=== PATIENT | male | born 1950 | race Caucasian/White ===

== ENCOUNTER → 2017-10-30 | Outpatient (CLI) | payer MEDICARE ==
--- NOTE | 2017-10-30 11:12 | XR ---
EXAMINATION TYPE: XR knee complete LT DATE OF EXAM: 10/30/2017 CLINICAL HISTORY: Left knee pain TECHNIQUE: Three views of the left knee are obtained. COMPARISON: None. FINDINGS: There is no acute fracture/dislocation evident in left knee. There is mild to moderate tri compartment joint space loss and spurring most prominent lateral tibiofemoral and patellofemoral comp artments. The overlying soft tissue appears unremarkable. IMPRESSION: There are moderate tricompartment degenerative changes in the left knee.
== END | disposition home or self-care (01) ==
LOC: RADXRMAIN 10:26
PROVIDERS: ATTEND Family Medicine
DX: M23.92 Unspecified internal derangement of left knee (principal)

== ENCOUNTER → 2017-11-06 | Outpatient (CLI) | payer MEDICARE ==
--- NOTE | 2017-11-06 15:07 | MR ---
EXAMINATION TYPE: MR knee LT wo con DATE OF EXAM: 11/06/2017 COMPARISON: NONE HISTORY: lt knee pain TECHNIQUE: Multiplanar, multisequence imaging of the left knee is performed without IV contrast. FINDINGS: MEDIAL MENISCUS: Subtle blunting of the posterior free edge of the medial meniscus compatible with a very small radial tear. LATERAL MENISCUS: There is a complex tear of the posterior horn of the lateral meniscus with radial t ear of the free edge of the posterior horn, oblique tear of the posterior horn, and extension into th e meniscal body. There is abnormal intrameniscal signal with fraying of the root fibers posteriorly. No definitive discontinuity. CRUCIATE LIGAMENTS: The anterior and posterior cruciate ligaments are intact. However there is abnorm al signal throughout the thickened anterior cruciate ligament compatible with mucoid degeneration. COLLATERAL LIGAMENTS: The medial collateral ligament and lateral collateral ligament complex are inta ct. There is thickening of the lateral meniscal femoral ligament and lateral collateral ligament with surrounding high signal on PD weighted images both superficial and deep to the lateral collateral li gament. No discontinuity. EXTENSOR MECHANISM: Visualized quadriceps and patellar tendons are intact. EFFUSION: There is a small suprapatellar joint effusion with internal complexity indicative of synov itis. POPLITEAL CYST: There is a small multiloculated popliteal cyst. TRICOMPARTMENT SPACES: Bone marrow edema is seen of the weightbearing surface of the lateral femoral condyle and tibial plateau with subchondral cyst formation of the tibial plateau. Bone marrow edema m ay be related to meniscal injury and cartilaginous defects and on a degenerative basis. Small margina l tricompartmental osteophytes are seen. CARTILAGE: There is full-thickness cartilaginous loss of the posterior weightbearing surface of the l ateral femoral condyle measuring 1.8 x 0.7 cm. There is signal heterogeneity of the remainder of the medial femoral condylar cartilage. There is full-thickness cartilaginous defect of the tibia measurin g 1.8 cm. Trochlear cartilage demonstrates mild signal heterogeneity without focal defect. Patellar c artilage is intact. There is signal heterogeneity throughout the medial compartment cartilage without focal partial or fu ll-thickness cartilaginous loss. IMPRESSION: 1. Complex tear of the posterior horn of lateral meniscus with oblique component and radial component . There is extension into the meniscal body and fraying of the posterior root without discrete tear. 2. Very small subtle free edge radial tear of the posterior horn of the medial meniscus. 3. Bone marrow edema and subchondral cystic change of the lateral femoral condyle and tibial plateau deep to full-thickness chondral defects of the weightbearing surface of the lateral femoral condyle a nd lateral tibial plateau with subsequent tibial plateau subchondral cysts. 4. Moderate tricompartmental arthrosis. 5. Small complex suprapatellar joint effusion indicative of synovitis. 6. Lateral collateral ligament sprain and abnormal thickness of the meniscal femoral ligament. 7. Mucoid degeneration of the anterior cruciate ligament.
== END | disposition home or self-care (01) ==
LOC: RADMRIMAIN 12:38
PROVIDERS: ATTEND Family Medicine
DX: S83.272A Complex tear of lateral meniscus, current injury, left knee, initial encounter (principal); S83.242A Other tear of medial meniscus, current injury, left knee, initial encounter; M17.12 Unilateral primary osteoarthritis, left knee; S83.422A Sprain of lateral collateral ligament of left knee, initial encounter; M25.862 Other specified joint disorders, left knee

== ENCOUNTER 2018-01-15 12:30 | Inpatient (IN) | payer MEDICARE ==
[2018-01-13 10:57] VITALS: BMI 22.4
[2018-01-22] MEDS ORDERED: ACETAMINOPHEN TAB 500 MG TAB PO ONE (05:00)
[2018-01-22] MEDS ORDERED: ceFAZolin IN SWFI 2 GM/20 ML SYRINGE IVP ONE (05:00)
[2018-01-22] MEDS ORDERED: ONDANSETRON 4 MG/2 ML VIAL IVP ONE ×2 (05:00→05:44)
[2018-01-22] MEDS ORDERED: MELOXICAM 7.5 MG TAB PO ONE (05:00)
[2018-01-22] MEDS ORDERED: TRANEXAMIC ACID 1,000 MG in SODIUM CHLORIDE 0.9% 50 ML IVPB ONE ×4 (05:00)
[2018-01-22] MEDS ORDERED: HYDROmorphone 0.5 MG/0.5 ML SYRINGE IVP PRN (05:44)
[2018-01-22] MEDS ORDERED: DEXAMETHASONE SOD PHOSPHATE 10 MG/ML 1 ML VIAL IV ONE (05:44)
[2018-01-22] MEDS ORDERED: ROPIVACAINE 246.25 MG, EPINEPHrine 0.5 MG, KETOROLAC 30 MG, cloNIDine HCL/PF 80 MCG, WA... MISCELLANE ONE ×5 (09:10)
[2018-01-22] MEDS: LACTATED RINGERS 1,000 ML IV SCH ×2 (11:39→15:35)
[2018-01-22] MEDS ORDERED: LIDOCAINE 1% 20 ML VIAL (10MG/ML) FOR IV START INTRADERMA ONE (11:40)
[2018-01-22] MEDS ORDERED: PROPOFOL 10 MG/ML 20 ML VIAL IV ONE (11:52)
[2018-01-22] MEDS ORDERED: MIDAZOLAM 2 MG/2 ML VIAL ONE (11:52)
[2018-01-22] MEDS ORDERED: fentaNYL (PF) 50 MCG/ML 2 ML AMP ONE (11:52)
[2018-01-22] MEDS ORDERED: TRANEXAMIC ACID 1,000 MG/10 ML VIAL ONE (11:52)
[2018-01-22] MEDS ORDERED: SODIUM CHLORIDE 0.9% 100 ML BAG ONE (11:52)
[2018-01-22] MEDS ORDERED: ceFAZolin 3,000 MG in SODIUM CHLORIDE 0.9% IRRIGATIO 3,000 ML IRRIGATION ONE (12:26)
[2018-01-22] MEDS ORDERED: TEMAZEPAM 15 MG CAP PO PRN (13:46)
[2018-01-22] MEDS ORDERED: HYDROcodone/APAP 5-325MG 1 EACH TAB PO PRN (13:46)
[2018-01-22] MEDS ORDERED: BISACODYL 10 MG SUPP RECTAL PRN (13:46)
[2018-01-22] MEDS ORDERED: DIAZEPAM 5 MG TAB PO PRN (13:46)
[2018-01-22] MEDS ORDERED: hydrOXYzine PAMOATE 25 MG CAP PO PRN (13:46)
[2018-01-22] MEDS ORDERED: NALOXONE 0.4 MG/ML 1 ML VIAL IV PRN (13:46)
[2018-01-22] MEDS ORDERED: HYDROmorphone 1 MG/ML 1 ML SYRINGE IVP PRN ×3 (13:46)
[2018-01-22] MEDS ORDERED: NA PHOS,M-B/NA PHOS,DI-BA 133 ML ENEMA RECTAL PRN (13:46)
[2018-01-22] MEDS ORDERED: ONDANSETRON 4 MG/2 ML VIAL IVP PRN (13:46)
[2018-01-22] MEDS ORDERED: MAGNESIUM HYDROXIDE 2,400 MG/10 ML CUP PO PRN (13:46)
--- NOTE | 2018-01-22 14:43 | OP ---
OPERATIVE REPORT DATE OF PROCEDURE: 01/22/2018 SURGEON: Twan Renae MD. TRAINING AND QUALITY MANAGER: LEIDY Greenberg. PREOPERATIVE DIAGNOSIS: Left knee osteoarthrosis. POSTOPERATIVE DIAGNOSIS: Left knee osteoarthritis. OPERATION: Left total knee arthroplasty. ANESTHESIA: Spinal with sedation. ESTIMATED BLOOD LOSS: 100 mL. TOURNIQUET TIME: 47 minutes at 250 mmHg. COMPLICATIONS: None apparent. DRAINS: None. DISPOSITION: Postanesthesia care unit preop. INDICATIONS: Jorden is a very pleasant 67-year-old male with longstanding history of left knee pain. History and physical examination are consist with advanced left knee osteoarthrosis. He has been through fairly significant course of nonoperative treatment up to this point. Further treatment options were discussed and he has decided to go for the left total knee arthroplasty. The risks of procedure were discussed with him in detail. These risks include, but are not limited to risk of infection, nerve damage, bleeding, pain and risk of deep vein thrombosis which could lead to fatal pulmonary embolism. There is also risk of loosening of the implant which could require revision operation. The patient understands these risks. All of his questions were answered to his satisfaction. Appropriate informed consent was obtained. DESCRIPTION OF THE PROCEDURE: Patient identified in preop holding area. Surgical site was marked by both the patient and myself. He was given 2 g of Ancef IV for prophylactic purposes. He was then transferred to the operative suite. He was placed supine on the operative table. Spinal anesthetic was then administered and dosed per the Anesthesia Department without apparent complication. Examination under anesthesia was then performed. The patient was just 2-3 degrees shy of full extension. He had 105 degrees of flexion in the medial collateral ligament. Lateral collateral ligament and posterior cruciate ligaments were stable. Tourniquet was then placed high on the left upper thigh well-padded in preparation for surgery. The patient's left lower extremity was then prepped and draped in usual sterile fashion. Standard surgical pause undertaken to ensure that appropriate preoperative antibiotics were given and that we were operating the on the correct site. All staff in the room were in agreement and we proceeded. The outlines of the patella were marked surgical pen. A planned 10-12 cm vertical incision centered over the patella was marked surgical pen. Leg was then exsanguinated with an Esmarch dressing. The knee was then flexed and the tourniquet was inflated to 250 mmHg. The total tourniquet time for the procedure was 47 minutes. The incision was then made with a 10 blade scalpel. Dissection carried down sharply overlying fascia. Great care was taken to minimize the skin flaps. The knee was then exposed using a standard medial parapatellar approach. A small cuff of quadriceps tendon was then left for suturing. He was in a bit of valgus preoperatively. A very minimal medial release was made. This was done just to allow for placement of the medial retractors to protect the medial collateral ligament. The medial meniscus was then excised as well. The lateral meniscus was also released anteriorly. The leg was then externally rotated. The patella was everted. The knee was flexed. The retractors then placed to protect the collateral ligaments. I then proceeded to remove the infrapatellar fat pad. This was excised sharply tangentially with with fibers of the patellar tendon. I then proceeded to remove peripheral osteophytes. This was done with a rongeur. I then proceeded with the distal femoral resection. He did have near full extension. A planned 9 mm resection was then done. The femoral canal was then entered in midline of the femur approximately 10 mm anterior to the origin of the posterior cruciate ligament. The chon was then advanced down the center of the femur and placed intramedullary. Based on preoperative radiographs, the angle between the anatomic and mechanical axis of the femur was approximately 4 to 5 degrees. The valgus angle of this femoral cutting guide was then set at 4 degrees for the right knee, for the distal femoral cutting guide was then advanced over the intramedullary chon. This was seated firmly against the femur. I then as mentioned planned to take 9 mm off the distal femur. The cutting block was then secured onto the femur with pins. The jig was then removed and then distal femoral cut was made through the slot of the block. The pins were then removed. The distal femoral cutting block was removed. The accuracy of the distal femoral cuts was checked with 2 flat bars. I then proceeded with femoral sizing. Posterior referencing sizing guide was held firmly against the resected distal surface of the femur. Posterior condyles were resting on the posterior plane of the guide. The sizing stylus was then placed onto the anterior femur. The size was measured as a size 9. I then assessed for femoral rotation. Plan was for 3 degrees of external rotation. Three degrees of external rotation was placed onto the jig. These holes were then marked. I then confirmed the rotation by 3 separate methods. This was done using epicondylar axis as well as Whitesides line and posterior referencing. It was deemed that the external rotation was proper. I then went forward with placing the femoral cutting block. This placed over the previously placed pin holes. The Sai wing was then placed onto the anterior slots to ensure that we would not notch the anterior femur with the anterior femoral cut. I then proceed with the anterior femoral cut. This was flush with the anterior cortex of the femur. The posterior cuts were then made followed by the anterior chamfer cut, then the posterior chamfer cut. The cutting block was then removed. Throughout the resection, the collateral ligaments were protected with retractors. I then placed a trial size 9 femur. It fit very nice medial-lateral and fit flush with the distal end of the femur. The drill holes were then made. I then proceed with tibial cut. I planned for cruciate retaining knee. The guide was placed and set for varus valgus and for slope. The height set for approximate 2 mm resection from the lateral tibial plateau which was the lower side appears happy with the alignment and amount of resection. The cutting block was then pinned to the proximal tibia. The alignment chon was removed and the proximal tibia was resected with a reciprocating saw. Again this was done with retractors protecting the collateral ligaments as well as the posterior cruciate ligament. I then proceeded to evaluate the flexion and extension gaps. A 10 mm block was then placed. The flexion-extension gaps were equal. I then proceeded with the resection of the posterior osteophytes. Very minimal posterior osteophytes. This is done using a curved osteotome. This resected the posterior osteophytes and posterior capsule stripping was done off the posterior aspect of the femur at this time. The osteophytes were then removed. I then proceed to resection of the patella. The thickness of patella was measured using the caliper. The thickness was approximately 26 mm. The thickness of the anticipated patellar dome was then taken into account. Resection was then performed and confirmed to be equal in 4 quadrants using a caliper. Approximately 14 mm of bone remained after resection. A 32 x 8.5 standard patellar trial was then placed. The holes were drilled. The trial was then placed. I then proceed to sign the tibial plate. A size G tibial plate fit very nicely. I then placed the trial femur the tibial tray and patellar button. A 10 mm trial tibial insert was also placed. The components fit very nicely. He had full extension and flexion. The extension flexion gaps were equal and stable to both varus and valgus stress. The patella tracked appropriately. The tibial tray rotation was marked with a Bovie. This was externally rotated properly. I then proceed to tibial preparation. I first drilled the femoral holes removed femoral component. The tibial tray was then set for proper external rotation as well as mediolateral placement onto the tibia. It was then pinned into place. I then proceeded with punching the keel. I then decided to proceed with cementing of all of our components. The knee was thoroughly irrigated with sterile saline solution via pulse lavage. The lateral geniculate artery was identified and cauterized. All blood was removed from the bone of the tibia femur and patella via pulse lavage. I then proceed with cementing. Two packs of antibiotic bone cement were prepared on the back table by the surgical dressing maker. I then proceeded with cementing the tibia first. The cement was impacted into the keel as well as deeply seated into the bone. A second coat of cement was then placed. The tibia was then impacted into place. Excess cement was removed with Marky's and Joker's. I then proceed with cementing the femoral component. The femoral component was also cemented using standard technique. Excess cement was removed. A 10 mm trial insert was then placed into the knee. It was brought into full extension with a constant axial load placed until the cement had hardened. The patellar component was then cemented. This held firmly with a compressive device until the cement had dried. When the cement had dried, the knee was taken out of extension. All of all excess cement was removed from around the prosthesis. I then trialed the knee with a 10 mm insert. Flexion extension gaps were appropriate. The knee was stable. It came into full extension. I decided to go for the 10 mm cross-linked cruciate-retaining tibial insert. Polyethylene was then placed onto the tibial tray and locked into place. The knee was then reduced. The knee was again thoroughly irrigated with sterile saline solution with antibiotic added. The tourniquet was then deflated. Total tourniquet time for the procedure was 47 minutes at 250 mmHg. Final components were Phyllis Persona size 9 cruciate-retaining femoral component, a size G tibial tray, a 10 mm medial congruent cruciate-retaining polyethylene insert and a 32 x 8.5 mm patella. I then proceeded with closure. Again, the knee was thoroughly irrigated. The quadriceps tendon and medial retinaculum were reapproximated with #2 Ethibond suture. The extensor mechanism was then closed with a running #2 Quill suture. Subcutaneous tissues were then closed with 2-0 Vicryl interrupted suture. The skin was closed with a running 3-0 Quill suture. Dermabond was applied to the incision. Sterile compressive dressing was then applied. All sponge and needle counts were deemed correct prior to closure. The patient tolerated the procedure without apparent complication. He was transferred recovery room in stable condition. MMODL / IJN: [id number] /
--- NOTE | 2018-01-22 15:20 | XR ---
EXAMINATION TYPE: XR knee limited LT DATE OF EXAM: 01/22/2018 COMPARISON: 10/30/2017 HISTORY: Knee replacement TECHNIQUE: 2 view left knee FINDINGS: Tibial and femoral components of in place. Postsurgical changes are present. No acute fract ures are evident. IMPRESSION: 1. No acute fractures post knee replacement
--- NOTE | 2018-01-22 17:50 | P.CONS ---
History of Present Illness - Reason for Consult Recommendations regarding antihypertensive medications - History of Present Illness Patient had elective left knee arthroplasty 6 insulin surgery, did pass gas didn 't move his bowel get denied any fever chills nausea vomiting dysuria. Review of Systems REVIEW OF SYSTEMS: CONSTITUTIONAL: No fever, no malaise, no fatigue. HEENT: No recent visual problems or hearing problems. Denied any sore throat. CARDIOVASCULAR: No chest pain, orthopnea, PND, no palpitations, no syncope. PULMONARY: No shortness of breath, no cough, no hemoptysis. GASTROINTESTINAL: No diarrhea, no nausea, no vomiting, no abdominal pain. Normoactive bowel sounds. NEUROLOGICAL: No headaches, no weakness, no numbness. HEMATOLOGICAL: Denies any bleeding or petechiae. GENITOURINARY: Denies any burning micturition, frequency, or urgency. MUSCULOSKELETAL/RHEUMATOLOGICAL: Denies any joint pain, swelling, or any muscle pain. ENDOCRINE: Denies any polyuria or polydipsia. The rest of the 14-point review of systems is negative. Past Medical History Past Medical History: Hyperlipidemia, Hypertension, Osteoarthritis (OA) History of Any Multi-Drug Resistant Organisms: None Reported Past Surgical History: No Surgical Hx Reported Additional Past Surgical History / Comment(s): COLONOSCOPY Past Anesthesia/Blood Transfusion Reactions: No Reported Reaction Past Psychological History: No Psychological Hx Reported Smoking Status: Never smoker Past Alcohol Use History: None Reported Past Drug Use History: None Reported - Past Family History Mother Family Medical History: Myocardial Infarction ([place]) Additional Family Medical History / Comment(s): emphysema Sister(s) Family Medical History: Hypertension Medications and Allergies Home Medications Medication Instructions Recorded Confirmed Type Aspirin 81 mg PO DAILY 05/27/14 01/22/18 History Multivitamin [Men's Multi-Vitamin] 1 tab PO DAILY 05/27/14 01/22/18 History Simvastatin [Zocor] 40 mg PO HS 05/27/14 01/22/18 History amLODIPine BESYLATE/BENAZEPRIL 1 tab PO HS 05/27/14 01/22/18 History [Amlodipine-Benazepril 5-10 mg] Cetirizine HCl [Zyrtec] 10 mg PO DAILY 01/13/18 01/22/18 History Aspirin 325 mg PO BID #60 tab 01/22/18 Rx Docusate [Colace] 100 mg PO BID #60 capsule 01/22/18 Rx HYDROcodone/APAP 7.5-325MG [[place] 1 - 2 each PO Q6HR PRN #56 tab 01/22/18 Rx 7.5-325] Allergies Allergy/AdvReac Type Severity Reaction Status Date / Time No Known Allergies Allergy Verified 01/22/18 14:52 Physical Exam Vitals: Vital Signs Temp Pulse Pulse Resp BP Pulse Ox 01/22/18 16:15 54 L 16 136/72 98 01/22/18 16:00 52 L 16 139/89 100 01/22/18 15:45 51 L 16 139/75 99 01/22/18 15:30 59 L 16 123/78 96 01/22/18 15:15 56 L 16 129/72 99 01/22/18 15:00 50 L 16 124/71 98 01/22/18 14:45 50 L 16 128/74 100 01/22/18 14:30 98.2 F 48 L 16 129/83 99 01/22/18 14:15 49 L 16 116/58 98 01/22/18 14:00 50 L 16 107/55 98 01/22/18 13:49 97.4 F L 55 L 16 107/58 97 01/22/18 11:27 98.0 F 53 L 18 174/83 98 Intake and Output 01/22/18 01/22/18 01/22/18 06:59 14:59 22:59 Intake Total 701 Output Total 100 Balance 601 Intake: IV 701 Output: Estimated Blood Loss 100 Other: Voiding Method Urinal Weight 77.111 kg PHYSICAL EXAMINATION: GENERAL: The patient is alert and oriented x3, not in any acute distress. Well developed, well nourished. HEENT: Pupils are round and equally reacting to light. EOMI. No scleral icterus. No conjunctival pallor. Normocephalic, atraumatic. No pharyngeal erythema. No thyromegaly. CARDIOVASCULAR: S1 and S2 present. No murmurs, rubs, or gallops. PULMONARY: Chest is clear to auscultation, no wheezing or crackles. ABDOMEN: Soft, nontender, nondistended, normoactive bowel sounds. No palpable organomegaly. MUSCULOSKELETAL: Deferred to orthopedic surgery EXTREMITIES: No cyanosis, clubbing, or pedal edema. NEUROLOGICAL: Gross neurological examination did not reveal any focal deficits. SKIN: No rashes. Assessment and Plan Plan: -Hypertension: To prevent perioperative hypotension I'll hold off antidepressive medications. -Hyperlipidemia simvastatin will be continued -Left knee arthroplasty: Pain management due to prophylaxis per primary service hold off 81 mg of aspirin as patient was started on 325 mg of aspirin.
[2018-01-22] MEDS: ASPIRIN 325 MG TAB PO SCH (20:34)
[2018-01-22] MEDS: ceFAZolin IN SWFI 2 GM/20 ML SYRINGE IVP SCH (20:34)
[2018-01-22] MEDS ORDERED: SENNOSIDES-DOCUSATE SODIUM 1 EACH TAB PO SCH (21:00)
[2018-01-22] MEDS ORDERED: ATORVASTATIN 20 MG TAB PO SCH (21:00)
[2018-01-22] MEDS: HYDROcodone/APAP 7.5-325MG 1 EACH TAB PO PRN (21:41)
[2018-01-23] MEDS: ceFAZolin IN SWFI 2 GM/20 ML SYRINGE IVP SCH (03:31)
[2018-01-23] MEDS: HYDROcodone/APAP 7.5-325MG 1 EACH TAB PO PRN ×2 (03:31→10:17)
[2018-01-23] MEDS: LACTATED RINGERS 1,000 ML IV SCH ×2 (03:39→07:38)
[2018-01-23 07:06] LABS: Basophils % (A) 0 %; Eosinophils % (A) 0 %; HCT 41.5 % (39.0-53.0); HGB 13.2 gm/dL (13.0-17.5); Lymphocytes # (A) 1.3 k/uL (1.0-4.8); Lymphocytes % (A) 9 %; MCHC 31.8 g/dL (31.0-37.0); MCV 91.3 fL (80.0-100.0); Mean Platelet Volume 7.4; Monocytes # (A) 0.9 k/uL (0-1.0); Monocytes % (A) 6 %; Neutrophils # (A) 12.1 k/uL (1.3-7.7); Neutrophils % (A) 84 %; Platelet Count 235 k/uL (150-450); RBC 4.55 m/uL (4.30-5.90); RDW 12.1 % (11.5-15.5); WBC 14.4 k/uL (3.8-10.6)
[2018-01-23 07:38] VITALS: BP 138/76; PULSE 60; RESP 14; TEMP 98.5
[2018-01-23] MEDS: ASPIRIN 325 MG TAB PO SCH (08:27)
--- NOTE | 2018-01-23 08:41 | P.DS ---
Providers Date of admission: 01/22/18 10:46 Expected date of discharge: 01/23/18 Attending physician: Twan Renae Consults: 01/22/18 13:46 Consult Physician Routine Consulting Provider: Anthony Funez Consult Reason/Comments: post op medical management Do you want consulting provider notified?: Yes Primary care physician: Anthony Funez - Discharge Diagnosis(es) (1) Primary osteoarthritis of left knee Current Visit: Yes Status: Acute (2) S/P total knee arthroplasty Current Visit: Yes Status: Acute Hospital Course: This is a 67-year-old male with known history of degenerative arthritis of the left knee. The patient presents for evaluation. After discussion and consideration patient elects to proceed with total knee arthroplasty. The patient is seen preoperatively by Dr. Renae and medically cleared for surgery by their primary care physician. Patient is admitted to [facility] on 01/22/2018 for total knee arthroplasty. The procedures performed without complication or sequelae. The patient is doing well postoperatively. Labs and vital signs are stable on day of discharge. On day of discharge patient's knee incision is healing well. There is minimal erythema. There is no drainage noted at this time. There is minimal soft tissue swelling to the knee. Patient has full foot and ankle motion without difficulty or pain. Neurovascular status to the left lower extremity is intact. Patient is discharged home in good condition. Please see med rec for accurate list of home medications. Plan - Discharge Summary Discharge Rx Participant: Yes New Discharge Prescriptions: New Aspirin 325 mg PO BID #60 tab Docusate [Colace] 100 mg PO BID #60 capsule HYDROcodone/APAP 7.5-325MG [[place] 7.5-325] 1 - 2 each PO Q6HR PRN #56 tab PRN Reason: Pain No Action Simvastatin [Zocor] 40 mg PO HS Aspirin 81 mg PO DAILY amLODIPine BESYLATE/BENAZEPRIL [Amlodipine-Benazepril 5-10 mg] 1 tab PO HS Multivitamin [Men's Multi-Vitamin] 1 tab PO DAILY Cetirizine HCl [Zyrtec] 10 mg PO DAILY Discharge Medication List Aspirin 81 mg PO DAILY 05/27/14 [History] Multivitamin [Men's Multi-Vitamin] 1 tab PO DAILY 05/27/14 [History] Simvastatin [Zocor] 40 mg PO HS 05/27/14 [History] amLODIPine BESYLATE/BENAZEPRIL [Amlodipine-Benazepril 5-10 mg] 1 tab PO HS 05/27 [History] Cetirizine HCl [Zyrtec] 10 mg PO DAILY 01/13/18 [History] Aspirin 325 mg PO BID #60 tab 01/22/18 [Rx] Docusate [Colace] 100 mg PO BID #60 capsule 01/22/18 [Rx] HYDROcodone/APAP 7.5-325MG [[place] 7.5-325] 1 - 2 each PO Q6HR PRN #56 tab [Rx] Follow up Appointment(s)/Referral(s): Twan Renae MD [STAFF PHYSICIAN] - 1 Week Activity/Diet/Wound Care/Special Instructions: keep wound clean and dry take meds as directed f/u with Dr. Renae in office [facility] Discharge Disposition: HOME WITH HOME HEALTH SERVICES
[2018-01-23] MEDS ORDERED: MULTIVITAMINS, THERA 1 EACH TAB PO SCH (13:49)
== END 2018-01-23 10:45 | disposition home health service (06) | DRG 470 ==
LOC: 2ORMAIN 01-22 10:46 → 3SUR 01-22 14:22
PROVIDERS: ADMIT Orthopaedic Surgery Sports Medicine; ATTEND Orthopaedic Surgery Sports Medicine
PROC: 0SRD0J9 Replacement of Left Knee Joint with Synthetic Substitute, Cemented, Open Approach (ICD-10-PCS; principal; 2018-01-22 12:30)
DX: M17.12 Unilateral primary osteoarthritis, left knee (principal); E78.5 Hyperlipidemia, unspecified; I10 Essential (primary) hypertension; M23.362 Other meniscus derangements, other lateral meniscus, left knee; Z82.5 Family history of asthma and other chronic lower respiratory diseases; Z82.49 Family history of ischemic heart disease and other diseases of the circulatory system; Z79.82 Long term (current) use of aspirin; Z79.899 Other long term (current) drug therapy
CPT/HCPCS: 85025; 88300

== ENCOUNTER 2022-01-07 06:26 | Day surgery (SDC) | payer MEDICARE ==
[2022-01-04 08:43] VITALS: BMI 24.4
[~2022-01-07 06:26] MED LIST: ACETAMINOPHEN TAB 500 MG TAB PO PRN; DEXAMETHASONE SOD PHOSPHATE 4 MG/ML 1 ML VIAL IV ONE; HEPARIN SODIUM,PORCINE/PF 5,000 UNIT/0.5 ML SYRINGE SQ PRN; LACTATED RINGERS 1,000 ML IV SCH; LIDOCAINE 1% (10MG/ML) FOR IV START INTRADERMA PRN; ONDANSETRON 4 MG/2 ML VIAL IVP ONE; ONDANSETRON 4 MG/2 ML VIAL IVP PRN
--- NOTE | 2022-01-07 07:32 | P.GSHP ---
History of Present Illness H&P Date: 01/07/22 Chief Complaint: Left inguinal hernia 71-year-old male here today for elective repair left inguinal hernia. Bulge present for the last several months. Patient has been using a truss frequently. Mild pain at times. No prior hernias. Past Medical History Past Medical History: Hyperlipidemia, Hypertension, Osteoarthritis (OA) Additional Past Medical History / Comment(s): left inguinal hernia History of Any Multi-Drug Resistant Organisms: None Reported Past Surgical History: Joint Replacement Additional Past Surgical History / Comment(s): COLONOSCOPY,leftknee replacement Past Anesthesia/Blood Transfusion Reactions: No Reported Reaction Additional Past Anesthesia/Blood Transfusion Reaction / Comment(s): no hx blood transfusion Smoking Status: Never smoker - Past Family History Mother Family Medical History: Myocardial Infarction ([place]) Additional Family Medical History / Comment(s): emphysema Sister(s) Family Medical History: Hypertension Medications and Allergies Home Medications Medication Instructions Recorded Confirmed Type Simvastatin [Zocor] 40 mg PO HS 05/27/14 01/04/22 History Cetirizine HCl [Zyrtec] 10 mg PO DAILY 01/13/18 01/04/22 History Aspirin 81 mg PO HS 01/04/22 01/04/22 History Celecoxib [CeleBREX] 200 mg PO DAILY 01/04/22 01/04/22 History amLODIPine BESYLATE/BENAZEPRIL 1 each PO HS 01/04/22 01/04/22 History [Lotrel 5-10 mg Capsule] Allergies Allergy/AdvReac Type Severity Reaction Status Date / Time No Known Allergies Allergy Verified 01/07/22 06:56 Surgical - Exam Vital Signs Temp Pulse Resp BP Pulse Ox 97.6 F 56 L 16 180/84 98 01/07/22 07:01 01/07/22 07:01 01/07/22 07:01 01/07/22 07:01 01/07/22 07:01 Physical exam: General: Well-developed, well-nourished HEENT: Normocephalic, sclerae nonicteric Abdomen: Nontender, nondistended Extremities: No edema Neuro: Alert and oriented Assessment and Plan (1) Left inguinal hernia Narrative/Plan: Will proceed with laparoscopic da Jose Eduardo assisted repair left inguinal hernia with mesh, possible open, possible bilateral. Risks of bleeding, infection, recurrence, bladder and bowel injury, numbness, nerve injury, conversion to an open procedure were discussed with the patient. The patient understands and wishes to proceed. Current Visit: Yes Status: Acute Code(s): K40.90 - UNIL INGUINAL HERNIA, W/O OBST OR GANGR, NOT SPCF RECUR [facility] Code(s): 430113557
[2022-01-07] MEDS ORDERED: NEOSTIGMINE 1 MG/ML 10 ML VIAL ONE (07:44)
[2022-01-07] MEDS ORDERED: LIDOCAINE 2% INJ 20 MG/ML (2 ML VIAL) ONE (07:44)
[2022-01-07] MEDS ORDERED: PROPOFOL 10 MG/ML 20 ML VIAL IV ONE (07:44)
[2022-01-07] MEDS ORDERED: ePHEDrine 50 MG/ML 1 ML VIAL ONE (07:44)
[2022-01-07] MEDS ORDERED: MIDAZOLAM 2 MG/2 ML VIAL ONE (07:44)
[2022-01-07] MEDS ORDERED: fentaNYL (PF) 50 MCG/ML 2 ML AMP ONE (07:44)
[2022-01-07] MEDS ORDERED: ROCURONIUM 10 MG/ML (5 ML VIAL) IV ONE (07:44)
[2022-01-07] MEDS ORDERED: GLYCOPYRROLATE 0.2 MG/ML 2 ML VIAL ONE (07:44)
[2022-01-07] MEDS ORDERED: SUCCINYLCHOLINE CHLORIDE 100 MG/5 ML SYR IV ONE (07:44)
[2022-01-07 07:46] LABS: HCT 46.2 % (39.0-53.0); HGB 14.6 gm/dL (13.0-17.5); MCH 30.2 pg (25.0-35.0); MCHC 31.6 g/dL (31.0-37.0); MCV 95.5 fL (80.0-100.0); Mean Platelet Volume 7.7; Platelet Count 270 k/uL (150-450); RBC 4.84 m/uL (4.30-5.90); WBC 6.4 k/uL (3.8-10.6)
[2022-01-07] MEDS ORDERED: BUPIVACAIN-EPI 0.25%-1:200,000 30 ML VIAL SQ ONE ×2 (08:00→08:30)
[2022-01-07] MEDS ORDERED: LACTATED RINGERS 1,000 ML IV ONE ×2 (08:57→10:55)
--- NOTE | 2022-01-07 09:57 | P.OP ---
Date of Procedure: 01/07/22 Procedure(s) Performed: PREOPERATIVE DIAGNOSIS: Left inguinal hernia POSTOPERATIVE DIAGNOSIS: Bilateral inguinal hernia PROCEDURE: Laparoscopic da Jose Eduardo assisted repair bilateral inguinal hernia with mesh SURGEON: Dr. Salgado ANESTHESIA: General OPERATIVE PROCEDURE DETAILS: Patient was placed in the operating table in the supine position. The patient was placed under general anesthesia. The abdomen was prepped and draped in usual sterile fashion. A small curvilinear supraumbilical incision was made. The fascia was retracted anteriorly with Broxton forceps. The Veress needle was inserted. We were unable to get a normal saline drop test. I decided to place a 5 mm optical trocar in the left upper quadrant at that time. Insufflation took place to 15 mm. An 8 mm trocar was placed into the peritoneal cavity at the umbilicus. 2 additional 8 mm trochars were placed in the right upper quadrant and left upper quadrant under visualization. The robotic arms were then brought in and docked into place. The fenestrated bipolar was used in the left arm and the laparoscopic igor was utilized in the right arm. A 30 8 mm scope was used in the up position. The peritoneal cavity was inspected. The patient had bilateral inguinal hernias. The right-sided hernia was a small moderate sized direct and given the size I felt it was best to proceed with bilateral repair. The peritoneum was incised in a horizontal fashion cephalad to the internal inguinal ring. This incision on the peritoneum across the midline so that we had a single flap right to left. The right side was first addressed. Careful dissection of the preperitoneal space took place. This took place using both electrocautery, sharp dissection but primarily blunt dissection. Visualization of the pubic tubercle and Nigel's ligament took place medially. Full dissection took place laterally as well. The direct hernia sac was fully dissected. At that time the left side was addressed in a similar fashion. The patient actually had a direct and an indirect hernia on this side. The indirect was fairly large. Once we had adequate space the extra-large Bard 3-D mid mesh was advanced into the preperitoneal space and placed on the left side while a large Bard 3-D mesh was placed on the right side. Where the 2 portions of mesh overlapped a running 20 the lock suture absorbable was used to suture the mesh in place at the midline. The peritoneal defect was then closed using 2 separate absorbable 2-0 VLok sutures. The hernia sacs were incorporated into the peritoneal closure to help prevent future recurrence. The pneumoperitoneum was then evacuated. The skin of all 4 sites was closed using a 4-0 Monocryl stitch. Skin glue was then applied. TYPE OF MESH USED: Bard 3-D mid XL on left large on right LOCATION OF MESH: Preperitoneal FIXATION: Absorbable 20V lock suture PREOPERATIVE DISCUSSION ON SMOKING CESSASTION: Yes PREOPERATIVE DISCUSSION ON MORBID OBESITY: Yes PREOPERATIVE DISCUSSION ON APPROPRIATE USE OF NARCOTIC USE: Yes PREOPERATIVE EDUCATION: Multi Modal, Smoking Cessation and Weight Loss with BMI over 35. DISPOSITION: Stable to recovery room
[2022-01-07] MEDS ORDERED: TAMSULOSIN 0.4 MG CAP.ER.24H PO STA (09:59)
[2022-01-07 10:07] VITALS: TEMP 97.4
[2022-01-07] MEDS: HYDROmorphone 0.5 MG/0.5 ML SYRINGE IVP PRN ×3 (10:19→10:41)
[2022-01-07] MEDS ORDERED: KETOROLAC 15 MG/ML 1 ML VIAL IVP ONE (10:41)
[2022-01-07 11:13] VITALS: RESP 20
[2022-01-07 11:36] VITALS: BP 163/84; PULSE 62
[2022-01-07] MEDS ORDERED: ACETAMINOPHEN TAB 325 MG TAB PO SCH (12:00)
[2022-01-07] MEDS ORDERED: IBUPROFEN 600 MG TAB PO SCH (13:00)
[2022-01-07] MEDS ORDERED: ONDANSETRON 4 MG/2 ML VIAL IVP ONE (13:03)
[2022-01-07] MEDS ORDERED: TAMSULOSIN 0.4 MG CAP.ER.24H PO ONE (13:03)
== END 2022-01-07 14:21 | disposition home or self-care (01) ==
LOC: OR 06:26
PROVIDERS: ATTEND Surgery
DX: K40.20 Bilateral inguinal hernia, without obstruction or gangrene, not specified as recurrent (principal); E78.5 Hyperlipidemia, unspecified; I10 Essential (primary) hypertension; M19.90 Unspecified osteoarthritis, unspecified site; Z96.652 Presence of left artificial knee joint; Z79.899 Other long term (current) drug therapy; Z79.82 Long term (current) use of aspirin; Z82.49 Family history of ischemic heart disease and other diseases of the circulatory system; Z82.5 Family history of asthma and other chronic lower respiratory diseases
CPT/HCPCS: 85027; 49650; C1781 ×2; J2250; J1100; J2710; J0690; J2405; J3010; J1885; J0330; J2704; J1170; J1644; J2001

== ENCOUNTER → 2022-11-01 | Outpatient (CLI) | payer MEDICARE ==
--- NOTE | 2022-11-01 09:28 | XR ---
EXAMINATION TYPE: XR lumbosacral spine min 4V DATE OF EXAM: 11/01/2022 9:23 AM INDICATION: Patient age:Male; 71 years old; Reason for study: M54.40 Lumbago/sciatica; PHH. COMPARISON: None TECHNIQUE: Frontal, bilateral oblique, and lateral views of the lumbar spine were obtained. FINDINGS: There are 5 lumbar type vertebral bodies identified. No evidence of any acute osseous patho logy. No evidence of loss of vertebral body height is seen. There is normal alignment of the lumbar vertebral bodies. Multilevel disc space narrowing with endplate sclerosis and anterior asbestosis vic ntified. Multilevel facet arthropathy. 1 cm calcification in the region of the left kidney. IMPRESSION: 1. No acute process. 2. Moderate multilevel degenerative disc disease and facet arthropathy. Consider further evaluation with MRI lumbar spine. 3. 1 cm left renal calculus.
== END | disposition home or self-care (01) ==
LOC: RADXRMAIN 09:07
PROVIDERS: ATTEND Family Medicine
DX: M47.26 Other spondylosis with radiculopathy, lumbar region (principal); M51.16 Intervertebral disc disorders with radiculopathy, lumbar region; N20.0 Calculus of kidney
CPT/HCPCS: 72110

== ENCOUNTER 2023-01-24 07:51 | Day surgery (SDC) | payer MEDICARE ==
[2023-01-17 13:19] VITALS: BMI 25.0
--- NOTE | 2023-01-24 07:30 | P.GSHP ---
History of Present Illness H&P Date: 01/24/23 Chief Complaint: Recurrent left inguinal hernia 72-year-old male known to our service. Patient with history of previous repair of bilateral inguinal hernia laparoscopically. Left-sided hernia symptoms recurred about a year later. The left-sided hernia repair was both direct and indirect. Mesh was placed bilaterally at the time and sutured in the midline. Complaining of mild soreness left groin. Past Medical History Past Medical History: Hyperlipidemia, Hypertension, Osteoarthritis (OA) Additional Past Medical History / Comment(s): left inguinal hernia History of Any Multi-Drug Resistant Organisms: None Reported Past Surgical History: Hernia Repair, Joint Replacement Additional Past Surgical History / Comment(s): COLONOSCOPY, left knee replacement, BILATERAL INGUINAL HERNIA REPAIR Past Anesthesia/Blood Transfusion Reactions: No Reported Reaction Additional Past Anesthesia/Blood Transfusion Reaction / Comment(s): no hx blood transfusion Past Psychological History: No Psychological Hx Reported Smoking Status: Never smoker Past Alcohol Use History: None Reported Past Drug Use History: None Reported - Past Family History Mother Family Medical History: Myocardial Infarction ([place]) Additional Family Medical History / Comment(s): emphysema Sister(s) Family Medical History: Hypertension Medications and Allergies Home Medications Medication Instructions Recorded Confirmed Type Simvastatin [Zocor] 40 mg PO HS 05/27/14 01/17/23 History Cetirizine HCl [Zyrtec] 10 mg PO DAILY 01/13/18 01/17/23 History Aspirin 81 mg PO HS 01/04/22 01/17/23 History amLODIPine BESYLATE/BENAZEPRIL 1 each PO HS 01/04/22 01/17/23 History [Lotrel 5-10 mg Capsule] traMADol HCL 50 mg PO BID PRN 01/17/23 01/17/23 History Allergies Allergy/AdvReac Type Severity Reaction Status Date / Time No Known Allergies Allergy Verified 01/17/23 13:13 Surgical - Exam Physical exam: General: Well-developed, well-nourished HEENT: Normocephalic, sclerae nonicteric Abdomen: Nontender, nondistended, reducible left inguinal hernia Extremities: No edema Neuro: Alert and oriented Assessment and Plan (1) Left inguinal hernia Narrative/Plan: Will proceed with open repair left recurrent inguinal hernia with mesh. Risks of bleeding, infection, recurrence, bladder and bowel injury, numbness, nerve injury, conversion to an open procedure were discussed with the patient. The patient understands and wishes to proceed. Status: Acute Code(s): K40.90 - UNIL INGUINAL HERNIA, W/O OBST OR GANGR, NOT SPCF RECUR SNOMED Code(s): 984774859
[~2023-01-24 07:51] MED LIST changes: +HYDROmorphone 0.5 MG/0.5 ML SYRINGE IVP PRN; -ONDANSETRON 4 MG/2 ML VIAL IVP PRN
[2023-01-24 08:30] LABS: Glucose,Whole Blood 100 mg/dL (70-110)
[2023-01-24] MEDS ORDERED: MIDAZOLAM 2 MG/2 ML VIAL IVP ONE (08:41)
[2023-01-24 08:58] LABS: ALT 27 U/L (4-49); AST 34 U/L (17-59); African American GFR (CKD) >90 (>60 ml/min/1.73 sqM); Albumin 4.4 g/dL (3.5-5.0); Alkaline Phosphatase 66 U/L (38-126); Anion Gap 4 mmol/L; Blood Urea Nitrogen 17 mg/dL (9-20); Carbon Dioxide 28 mmol/L (22-30); Chloride 106 mmol/L (98-107); Glucose 103 mg/dL (74-99); Non-African American GFR(CKD) >90 (>60 ml/min/1.73 sqM); Potassium 3.7 mmol/L (3.5-5.1); Sodium 138 mmol/L (137-145)
[2023-01-24] MEDS ORDERED: BUPIVACAINE (PF) 0.25% 30 ML VIAL SQ ONE ×2 (09:13→10:28)
[2023-01-24] MEDS ORDERED: PROPOFOL 10 MG/ML 20 ML VIAL IV ONE (09:19)
[2023-01-24] MEDS ORDERED: MIDAZOLAM 2 MG/2 ML VIAL ONE (09:19)
[2023-01-24] MEDS ORDERED: KETOROLAC 15 MG/ML 1 ML VIAL ONE (09:19)
[2023-01-24] MEDS ORDERED: fentaNYL (PF) 50 MCG/ML 2 ML AMP ONE (09:19)
[2023-01-24 10:42] VITALS: TEMP 97.2
--- NOTE | 2023-01-24 10:49 | P.OP ---
Date of Procedure: 01/24/23 Procedure(s) Performed: PREOPERATIVE DIAGNOSIS: Recurrent left inguinal hernia POSTOPERATIVE DIAGNOSIS: Recurrent indirect left inguinal hernia PROCEDURE: Open repair recurrent left inguinal hernia with mesh SURGEON: Dr. Salgado ANESTHESIA: General OPERATIVE PROCEDURE DETAILS: Patient was placed in the operating table in the supine position and placed under general anesthesia. An oblique incision was made in the left groin. Dissection down through the subcutaneous tissues took place using electrocautery. The external oblique fascia was incised using a scalpel. This opening was lengthened using the Metzenbaum scissors. The spermatic cord was encircled with a [place] drain. The spermatic cord structures were identified and preserved. Careful dissection revealed an indirect hernia sac. This was opened. This was fairly large. This contained a sliding component of the sigmoid colon. Sharp and blunt dissection mobilized the sigmoid colon away from the peritoneal sac. Sac was then ligated using 2 separate 0 silk stick tie sutures. A 3" x 6" Prolene mesh was cut to fit on the exposed fascia. This was sutured to the pubic tubercle the folding edge of the inguinal ligament and the conjoined tendon using interrupted 0 Vicryl sutures. A slit was created in the mesh and the mesh was wrapped around the spermatic cord and sutured back to itself. The external oblique was then reapproximated using a running 2-0 Vicryl suture. The subcutaneous tissues were reapproximated using a 3-0 Vicryl sutures. The skin was closed using 4-0 Monocryl sutures. Skin glue and sterile dressings were then applied. TYPE OF MESH USED: Flat Prolene mesh 3" x 6" LOCATION OF MESH: [place] FIXATION: 2-0 Vicryl PREOPERATIVE DISCUSSION ON SMOKING CESSASTION: Yes PREOPERATIVE DISCUSSION ON MORBID OBESITY: Yes PREOPERATIVE DISCUSSION ON APPROPRIATE USE OF NARCOTIC USE: Yes PREOPERATIVE EDUCATION: Multi Modal, Smoking Cessation and Weight Loss with BMI over 35. DISPOSITION: Stable to recovery room
[2023-01-24] MEDS ORDERED: TAMSULOSIN 0.4 MG CAP.ER.24H PO ONE (11:41)
[2023-01-24 12:00] VITALS: RESP 16
[2023-01-24] MEDS ORDERED: ACETAMINOPHEN TAB 325 MG TAB PO SCH (12:00)
[2023-01-24 12:59] VITALS: BP 162/86; PULSE 68
[2023-01-24] MEDS ORDERED: IBUPROFEN 600 MG TAB PO SCH (14:00)
== END 2023-01-24 13:00 | disposition home or self-care (01) ==
LOC: OR 07:51
PROVIDERS: ATTEND Surgery
DX: K40.91 Unilateral inguinal hernia, without obstruction or gangrene, recurrent (principal); Z88.9 Allergy status to unspecified drugs, medicaments and biological substances; Z79.82 Long term (current) use of aspirin; I10 Essential (primary) hypertension; E78.5 Hyperlipidemia, unspecified; M19.90 Unspecified osteoarthritis, unspecified site; Z79.899 Other long term (current) drug therapy
CPT/HCPCS: 80053; 88302; 49520; C1781; J2250; J1100; J0690; J2405; J3010; J1885; J2704; J1170; J1644; J0665

== ENCOUNTER → 2024-06-18 | Outpatient (CLI) | payer MEDICARE ==
--- NOTE | 2024-06-20 01:31 | PE ---
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 Images are reviewed on the computer in the coronal, ax ial, and sagittal planes. Reconstructed rotating images are created on independent workstation and r eviewed on the computer. A non-contrast CT is performed in conjunction with the PET scan. Glucose l evel 101 mg/dL CT DLP: 731.61 mGycm, Automated exposure control for dose reduction was used. COMPARISON: CT None, PET/CT None, MRI: None FINDINGS: Mediastinal SUV mean is 2.3. Hepatic parenchyma SUV mean is 2.7. SKULL BASE AND NECK: No suspicious radiotracer activity. CHEST, MEDIASTINUM, AND HILAR REGION: No suspicious radiotracer activity. Surgical clips within the right axilla without adenopathy identified. ABDOMEN AND PELVIS: No suspicious radiotracer activity. MUSCULOSKELETAL STRUCTURES: No suspicious radiotracer activity. OTHER CT: Bilateral carotid bulb calcifications. Multilevel degenerative disc disease. Small coronary calcifications. Mild atherosclerotic calcification of aorta and its branches. Prostatomegaly measuri ng 5.0 cm adjacent dimension. Distal colonic diverticulosis without evidence for acute diverticulitis . Mild bilateral gynecomastia. Pelvic phleboliths. Right gluteal soft tissue calcification. Bilateral lower lobe subsegmental atelectasis. Postsurgical changes from total left knee arthroplasty. IMPRESSION: No suspicious radiotracer activity. No priors were available. If a prior is made available, an addend um can be made to address providers area of concern. [facility], , 06/20/2024 1:28 AM
== END | disposition home or self-care (01) ==
LOC: RADPETMAIN 06:23
PROVIDERS: ATTEND Internal Medicine Hematology & Oncology
DX: C43.59 Malignant melanoma of other part of trunk (principal)
CPT/HCPCS: 78816; A9552